=== PATIENT | male | born 1980 | race Hispanic/Latino ===

== ENCOUNTER 2018-06-11 22:08 | Emergency (ER) | payer SELFPAY ==
[~2018-06-11 22:08] MED LIST: ISOVUE-370 76%-LOCM 1 ML ONE
[2018-06-11] MEDS ORDERED: Adacel (T-DAP) 0.5 ML SYRINGE ONE (23:10)
[2018-06-11 23:29] LABS: #Basophils 0.1 thou/uL (0.0-0.2); #Eosinphils 0.2 thou/uL (0.0-0.7); #Lymphocytes 2.4 thou/uL (1.20-3.40); #Monocytes 0.6 thou/uL (0.11-0.59); #Neutrophils 6.9 thou/uL (1.40-6.50); %Basophils 0.6 % (0.0-1.0); %Eosinophils 1.7 % (0.0-10.0); %Lymphocytes 23.9 % (21.0-51.0); %Monocytes 6.1 % (0.0-10.0); %Neutrophils 67.6 % (42.0-75.0); Hemoglobin 13.6 g/dL (14.0-18.0); Mean Corpuscular HGB CONC 33.5 g/dL (32.0-36.0); Mean Corpuscular Volume 80.5 fL (78.0-98.0); Mean Platelet Volume 7.4 fL (7.4-10.4); Platelet Count 365 thou/uL (130-400); RBC Distribution Width 11.9 % (11.5-14.5); Red Blood Cell (RBC) Count 5.05 mill/uL (4.70-6.10); White Blood Cell (WBC) Count 10.1 thou/uL (4.8-10.8)
[2018-06-12 00:12] LABS: ALT (SGPT) 13 U/L (8-55); AST (SGOT) 12 U/L (5-34); Albumin 4.1 g/dL (3.5-5.0); Alkaline Phosphatase 115 U/L (40-150); Anion Gap 18 mmol/L (10-20); BUN (Urea Nitrogen) 13 mg/dL (8.9-20.6); Bilirubin, Total 0.2 mg/dL (0.2-1.2); Calc. Creatinine Clearance 0 mL/min (70-130); Calcium 9.5 mg/dL (7.8-10.44); Carbon Dioxide 22 mmol/L (22-29); Chloride 99 mmol/L (98-107); Estimated GFR-MDRD Greater than 90; Glucose 395 mg/dL (70-105); Potassium 3.6 mmol/L (3.5-5.1); Protein, Total 8.1 g/dL (6.0-8.3); Sodium 135 mmol/L (136-145)
[2018-06-12] MEDS ORDERED: Lidocaine 1% w/Epinephrine 1:100K 20 ML VIAL ONE (00:30)
--- NOTE | 2018-06-12 09:07 | CT ---
PRELIMINARY REPORT/[facility]/EMERGENTY AFTER-HOURS PROCEDURE CT Neck With Contrast EXAM DATE/TIME: 06/11/2018 11:31 PM CLINICAL HISTORY: 38 years old, male; Signs and symptoms; Abscess, cutaneous; Patient HX: PT reports neck abscess x1 we ek. Reports fever has high as 102 since tuesday. PT reports the abscess starting draining on tuesday bu t continues to drain and is not getting smaller. PT reports nausea earlier in the week. PT reports intermittent headache TECHNIQUE: Axial computed tomography images of the neck with intravenous contrast. COMPARISON: No relevant prior studies available. 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 Oropharynx: Normal. No significant tonsillar enlargement. Larynx: Normal. Normal epiglottis. Submandibular/Parotid glands: Normal. Glands are normal in size. Thyroid: Normal. No enlarged or calcified nodules. Lymph nodes: Normal. No lymphadenopathy. Lungs: Normal as visualized. Vasculature: No acute findings. Bones/joints: Normal. No acute fracture. Soft tissues: Ill-defined posterior scalp abscess measures 16 x 11 mm x 18 mm, with surrounding cellu litis. IMPRESSION: Ill-defined posterior scalp abscess measures 16 x 11 mm x 18 mm, with surrounding cellulitis. 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 Thank you for allowing us to participate in the care of your patient. Dictated and Authenticated by: Rhea Aguirre MD 06/12/2018 12:14 AM Central Time ([place] & [place]) FINAL REPORT CONTRAST ENHANCED CT IMAGES SOFT TISSUE NECK: Final report. Preliminary exam was performed by [facility]. I concur with the dictation from [facility]. There is an area of inflammatory change in the right occipital scalp. This may represent an inflamma tory process. I do not see definite evidence of an abscess, rather there appear to be adjacent areas of cellulitis and scalp thickening. There is an area of marked increased vascularity in the left mi ddle cranial fossa within an enlarged and tortuous internal carotid artery and numerous areas of serp entigenous vascularity in the left middle cranial fossa. Findings most compatible with arteriovenous malformation. Neurosurgical consultation is recommended. POS: [facility]
== END 2018-06-12 00:58 | disposition home or self-care (01) ==
LOC: ERS 22:08
DX: Q27.30 Arteriovenous malformation, site unspecified (principal); L02.11 Cutaneous abscess of neck
CPT/HCPCS: 10060; 70491; 80053; 85025; 90471; 90715; J2001; Q9966

== ENCOUNTER 2020-05-22 10:31 | Emergency (ER) | payer SELFPAY ==
[2020-05-22] MEDS ORDERED: Bupivacaine 0.5% 10 ML VIAL ONE (11:09)
[2020-05-22] MEDS ORDERED: Bacitracin 1 PK ONE (12:09)
== END 2020-05-22 12:00 | disposition home or self-care (01) ==
LOC: ERS 10:31
DX: S51.812A Laceration without foreign body of left forearm, initial encounter (principal); E11.9 Type 2 diabetes mellitus without complications; W26.8XXA Contact with other sharp object(s), not elsewhere classified, initial encounter
CPT/HCPCS: 12002; J3490

== ENCOUNTER 2024-03-04 14:00 | Emergency (ER) | payer SELFPAY ==
[2024-03-04 15:03] LABS: #Basophils 0.03 10x3/uL (0.0-0.2); %Basophils 0.4 % (0.0-1.0); %Eosinophils 1.5 % (0.0-10.0); %Lymphocytes 25.6 % (21.0-51.0); %Monocytes 5.6 % (0.0-10.0); %Neutrophils 66.4 % (42.0-75.0); Hematocrit 42.8 % (42.0-52.0); Hemoglobin 13.8 g/dL (14.0-18.0); Mean Corpuscular HGB CONC 32.2 g/dL (32.0-36.0); Mean Corpuscular Volume 83.8 fL (78.0-98.0); Mean Platelet Volume 9.9 fL (7.4-10.4); Platelet Count 240 10x3/uL (130-400); RBC Distribution Width 12.5 % (11.5-14.5); Red Blood Cell (RBC) Count 5.11 mill/uL (4.70-6.10)
[2024-03-04 15:16] LABS: ALT (SGPT) 18 U/L (8-55); AST (SGOT) 12 U/L (5-34); Albumin 3.9 g/dL (3.5-5.0); Alkaline Phosphatase 100 U/L (40-110); Anion Gap 14 mmol/L (10-20); BUN (Urea Nitrogen) 17 mg/dL (8.9-20.6); Bilirubin, Total 0.3 mg/dL (0.2-1.2); Calc. Creatinine Clearance 0 mL/min (70-130); Carbon Dioxide 26 mmol/L (22-29); Chloride 100 mmol/L (98-107); Estimated GFR 108; Globulin 3.8 g/dL (2.4-3.5); Glucose 305 mg/dL (70-105); Potassium 3.8 mmol/L (3.5-5.1); Protein, Total 7.7 g/dL (6.0-8.3); Sodium 136 mmol/L (136-145)
== END 2024-03-04 16:10 | disposition home or self-care (01) ==
LOC: ERS 14:00
DX: R55 Syncope and collapse (principal); E11.9 Type 2 diabetes mellitus without complications; Z55.0 Illiteracy and low-level literacy
CPT/HCPCS: 36415; 36416; 80053; 85025; 93005; 96360